=== PATIENT | female | born 1970 | race Hispanic/Latino ===

== ENCOUNTER 2018-03-02 15:41 | Outpatient (CLI) | payer OTHER | END 2018-03-02 15:42 | disposition home or self-care (01) | LOC: BICMAMMO 15:41 | PROVIDERS: ATTEND Family Medicine | DX: Z12.31 Encounter for screening mammogram for malignant neoplasm of breast (principal) | CPT/HCPCS: 77063; 77067 ==

== ENCOUNTER 2018-04-07 14:59 | Outpatient (CLI) | payer OTHER | END 2018-04-07 15:00 | disposition home or self-care (01) | LOC: BICMAMMO 14:59 | PROVIDERS: ATTEND Family Medicine | DX: R92.1 Mammographic calcification found on diagnostic imaging of breast (principal) | CPT/HCPCS: G0279 ==

== ENCOUNTER → 2018-04-23 | Day surgery (SDC) | payer OTHER ==
--- NOTE | 2018-04-23 10:13 | MMO ---
STEREOTACTIC BREAST BIOPSY: HISTORY: Left breast calcifications. COMPARISON: Outside facility mammograms. TECHNIQUE/FINDINGS: The patient was brought to the stereotactic suite. All questions were answered. The patient's left breast was prepped and draped in normal sterile fashion. The calcifications are v isualized using mammography. Two mL of buffered Lidocaine was instilled into the superficial and deep soft tissues. A small derma totomy was made after adequate anesthesia. A total of six 10-gauge cores were obtained. The calcifications were present, with near-complete rem oval of all calcifications. The patient tolerated the procedure well without complication. IMPRESSION: Technically successful stereotactic biopsy. POS: BREANNE
--- NOTE | 2018-04-23 12:11 | MMO ---
MAMMOGRAM POST CLIP PLACEMENT: Date: 04/23/18 COMPARISON: Outside facility mammograms. FINDINGS: There is satisfactory clip placement. IMPRESSION: Satisfactory position of the clip. POS: BREANNE
--- NOTE | 2018-04-23 12:12 | MMO ---
MAMMO SURGICAL SPECIMEN: Date: 04/23/18 HISTORY: Stereotactic biopsy. COMPARISON: Stereotactic biopsy same date. FINDINGS: There is satisfactory specimen with calcifications within a majority of the samples. Majority of the calcifications have been removed. IMPRESSION: Multiple calcifications within the sample. Adequate sample. POS: BREANNE
== END ==
LOC: MAMMO 07:15
PROVIDERS: ATTEND Family Medicine
PROC: 0HBT3ZX Excision of Right Breast, Percutaneous Approach, Diagnostic (ICD-10-PCS; principal; 2018-04-23)
DX: N60.92 Unspecified benign mammary dysplasia of left breast (principal)
CPT/HCPCS: 19081; 76098; 88305